=== PATIENT | male | born 1950 | race African-American/Black ===

== ENCOUNTER 2018-03-03 15:53 | Inpatient (IN) | payer MEDICARE ==
[~2018-03-03] VITALS: Ht 188 cm; Wt 93.5 kg
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
[2018-03-03 15:55] VITALS: BP 166/79
[2018-03-03] MEDS ORDERED: AMARYL4 MG PO (16:04)
[2018-03-03] MEDS ORDERED: LIPITOR 20 MG T20 M1 PO ×2 (16:05)
[2018-03-03] MEDS ORDERED: METFORMIN HCL500 MG PO (16:06)
[2018-03-03] MEDS ORDERED: NORVASC5 MG PO (16:06)
[2018-03-03] MEDS ORDERED: ASPIR 8181 MG PO (16:06)
[2018-03-03] MEDS ORDERED: MOBIC7.5 MG PO (16:06)
[2018-03-03 16:33] LABS: MCH 27.5 pg (26.0-34.0); MCV 84.5 fL (80.0-100.0)
[2018-03-03 16:34] LABS: HEMATOCRIT 35.7 % (42.0-52.0); HEMOGLOBIN 11.6 gm/dL (14.0-18.0); MCHC 32.6 g/dL (28.0-37.0); MPV 9.4 fl. (7.2-11.1); NUCLEATED RBCS 1 /100WBC; PLATELET COUNT* 227 thou/uL (150-400); RBC 4.23 mil/uL (4.50-6.00); RDW-CV 15.2 % (10.5-14.5); WBC 13.4 thou/uL (4.0-11.0)
[2018-03-03 16:42] LABS: INFLUENZA A ANTIGEN None Detected (None Detect)
[2018-03-03 16:42] LABS: APTT 36.9 Seconds (25.0-31.3); INR 1.1
[2018-03-03 16:44] LABS: CALCIUM 8.1 mg/dL (8.5-10.1); CREATININE 1.5 mg/dL (0.6-1.3)
[2018-03-03 16:49] LABS: ABSOLUTE LYMPHOCYTES 0.5 thou/uL (0.8-5.3); ABSOLUTE MONOCYTES 0.1 thou/uL (0.0-1.2); ABSOLUTE NEUTROPHILS 12.7 thou/uL (1.6-8.1); PLATELET ESTIMATE ADEQUATE
[2018-03-03 16:53] LABS: URINE BILIRUBIN NEGATIVE (Negative); URINE BLOOD 2+ (Negative); URINE COLOR YELLOW; URINE GLUCOSE-RANDOM 3+ (Negative); URINE KETONES NEGATIVE (Negative); URINE LEUKOCYTES-REFLEX NEGATIVE (Negative); URINE NITRITE-REFLEX NEGATIVE (Negative); URINE PROTEIN 2+ (Negative); URINE SPECIFIC GRAVITY 1.015 (1.005-1.030); URINE UROBILINOGEN 0.2 E.U./dl (0.2-1.0)
[2018-03-03 16:54] LABS: URINE CLARITY HAZY
[2018-03-03 16:56] LABS: ALBUMIN 2.4 g/dL (3.4-5.0); TOTAL BILIRUBIN 0.6 mg/dL (<0.1-1.0); TOTAL PROTEIN 6.9 g/dL (6.4-8.2); TROPONIN-I LEVEL 0.11 ng/mL (<0.06)
[2018-03-03 17:04] LABS: AMORPHOUS URATES Few /LPF (None Seen); BACTERIA-REFLEX None Seen /HPF (None Seen); CASTS None Seen /LPF (None Seen); SQUAMOUS 0-3 Few /LPF (0-3); URINE RBC 0-2 Rare /HPF (0-2); URINE WBC-REFLEX None Seen /HPF (0-5)
[2018-03-03 17:23] VITALS: BP 170/80
[2018-03-03 17:50] VITALS: BP 171/77
[2018-03-03 17:51] VITALS: BP 151/70
[2018-03-03 20:00] VITALS: BP 156/86
[2018-03-04 01:01] VITALS: BP 150/73
[2018-03-04 05:17] VITALS: BP 169/103
[2018-03-04 08:00] VITALS: BP 144/83
[2018-03-04 12:00] VITALS: BP 150/81
--- NOTE | 2018-03-04 12:16 | EKG ---
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
--- NOTE | 2018-03-04 12:19 | EKG ---
[place] [address] ELECTROCARDIOGRAM REPORT Name: TREVERKHOI Teixeira Room: [address] ADM IN M.R.#: [id number] Admission: 03/03/18 Attend Phys: Emmanuel Almonte MD Discharge: Date of : 50 Report #: [id number] THIS REPORT FOR: //name// [facility] Test Date: 2018-03-04 Test Time: 07:48:07 Pat Name: KHOI PERERA Department: Room: [address] Gender: M Collaborative Physician: : 1950 Requested By: Emmanuel Almonte Order Number: [id number] MD: Lio Garner Measurements Intervals [place] Rate: 115 P: VT: QRS: 22 QRSD: 76 T: 19 QT: 361 QTc: 500 Interpretive Statements Atrial fibrillation Posterior infarct, old No previous ECG available for comparison Electronically Signed On 03-04-2018 12:18:58 PANEL EDGE SEALER by Lio Garner [email or web address] <ELECTRONICALLY SIGNED> By: Lio Garner MD, [facility] 03/04/18 1218 0748 7 Lio Garner MD, FACC /EPI
[2018-03-04 16:00] VITALS: BP 135/68
[2018-03-04 20:00] VITALS: BP 153/67
[2018-03-05 00:29] VITALS: BP 131/67
[2018-03-05 05:00] VITALS: BP 136/72
[2018-03-05 08:00] VITALS: BP 139/79
[2018-03-05 12:00] VITALS: BP 136/70
--- NOTE | 2018-03-05 14:18 | 2DMMODE ---
[place] [address] 2 D/M-MODE ECHOCARDIOGRAM Name: KHOI PERERA Room: [address] IN [facility]#: [id number] Admission: 03/03/18 Attend Phys: Emmanuel Almonte, Discharge: Date of : 50 Date of Service: 03/05/18 1418 Report #: [id number] THIS REPORT FOR: //name// APPROVED REPORT Study performed: 03/05/2018 10:51:42 EXAM: Comprehensive 2D, Doppler, and color-flow Echocardiogram Patient Location: In-Patient Room #: [facility] Status: routine BSA: 2.08 HR: 85 bpm BP: 139/79 mmHg Rhythm: NSR Other Information Study Quality: Good Indications Atrial Fibrillation Fever 2D Dimensions IVSd: 12.75 (7-11mm) LVOT Diam: 21.43 (18-24mm) LVDd: 36.24 mm PWd: 10.44 (7-11mm) Ascending Ao: 26.10 (22-36mm) LVDs: 25.90 (25-40mm) Aortic Root: 29.07 mm Volumes Left Atrial Volume (Systole) LA ESV Index: 27.70 mL/m2 Aortic Valve AoV Peak Demetrio.: 1.31 m/s AO Peak Gr.: 6.84 mmHg LVOT Max P.36 mmHg AO Mean Gr.: 3.33 mmHg LVOT Mean P.64 mmHg LVOT Max V: 1.26 m/s AO V2 VTI: 22.01 cm LVOT Mean V: 0.73 m/s MARCO (VTI): 3.64 cm2 LVOT V1 VTI: 22.19 cm Mitral Valve E/A Ratio: 1.16 MV Decel. Time: 178.19 [place] [address] 2 D/M-MODE ECHOCARDIOGRAM Name: KHOI PERERA Room: [address] IN .R.#: [id number] Admission: 03/03/18 Attend Phys: Emmanuel Almonte, Discharge: Date of : 50 Date of Service: 03/05/18 1418 Report #: [id number] MV E Max Demetrio.: 0.76 m/s MV PHT: 51.67 ms MVA (PHT): 4.26 cm2 TDI E/Lateral E': 6.91 E/Medial E': 8.44 Medial E' Demetrio.: 0.09 m/s Lateral E' Demetrio.: 0.11 m/s Tricuspid Valve RAP Estimate: 5.00 mmHg TR Peak Gr.: 32.30 mmHg RVSP: 37.00 mmHg PA Pressure: 37.00 mmHg Left Ventricle The left ventricle is normal size. There is normal LV segmental wall motion. There is normal left ventricular wall thickness. Left ventricular systolic function is normal. The left ventricular ejection fraction is within the normal range. LVEF is 65%. The left ventricular diastolic function is normal. Right Ventricle The right ventricle is normal size. The right ventricular systolic function is normal. Atria The left atrium size is normal. The right atrium size is normal. Aortic Valve Mild aortic valve sclerosis. No aortic regurgitation is present. There is no aortic valvular stenosis. Mitral Valve Mitral valve leaflets are mildly thickened. There is no mitral valve regurgitation noted. No evidence of mitral valve stenosis. Tricuspid Valve The tricuspid valve is normal in structure. Mild tricuspid regurgitation. Mild pulmonary hypertension. Pulmonic Valve The pulmonary valve is normal in structure. There is no pulmonic valvular regurgitation[place] [address] 2 D/M-MODE ECHOCARDIOGRAM Name: KHOI PERERA Room: [address] IN [facility]#: [id number] Admission: 03/03/18 Attend Phys: Emmanuel Almonte, Discharge: Date of : 50 Date of Service: 03/05/18 1418 Report #: [id number] The aortic root is normal in size. IVC is normal in size and collapses >50% with inspiration. Pericardium There is no pericardial effusion. <Conclusion> The left ventricle is normal size. There is normal left ventricular wall thickness. Left ventricular systolic function is normal. The left ventricular ejection fraction is within the normal range. LVEF is 65%. The right ventricle is normal size. The left atrium size is normal. Mild aortic valve sclerosis. No aortic regurgitation is present. There is no aortic valvular stenosis. Mitral valve leaflets are mildly thickened. There is no mitral valve regurgitation noted. No evidence of mitral valve stenosis. The tricuspid valve is normal in structure. IVC is normal in size and collapses >50% with inspiration. There is no pericardial effusion. There is normal LV segmental wall motion. <ELECTRONICALLY SIGNED> By: Louie Street MD, FACC 03/05/18 [address] MD, FACC /INF
[2018-03-05 16:00] VITALS: BP 145/70
[2018-03-05 20:35] VITALS: BP 152/89
[2018-03-06] VITALS (7 sets, daily range): BP systolic 143–154; BP diastolic 72–78
[2018-03-06 05:39] LABS: ABSOLUTE MONOCYTES 1.3 thou/uL (0.0-1.2); ABSOLUTE NEUTROPHILS 8.2 thou/uL (1.6-8.1); BASOPHILS 0.4 %; EOSINOPHILS 0.4 %; HEMATOCRIT 32.4 % (42.0-52.0); HEMOGLOBIN 10.7 gm/dL (14.0-18.0); LYMPHOCYTES 17.2 %; MCH 27.5 pg (26.0-34.0); MCHC 33.1 g/dL (28.0-37.0); MCV 82.9 fL (80.0-100.0); MONOCYTES 11.6 %; MPV 8.3 fl. (7.2-11.1); NUCLEATED RBCS 0 /100WBC; PLATELET COUNT* 295 thou/uL (150-400); POLYS 70.4 %; RBC 3.91 mil/uL (4.50-6.00); RDW-CV 15.7 % (10.5-14.5); WBC 11.6 thou/uL (4.0-11.0)
[2018-03-06 06:07] LABS: ALBUMIN 1.5 g/dL (3.4-5.0); CREATININE 0.9 mg/dL (0.6-1.3); MAGNESIUM 1.4 mg/dL (1.8-2.4); POTASSIUM 3.7 mmol/L (3.5-5.1); TOTAL BILIRUBIN 0.5 mg/dL (<0.1-1.0); TOTAL PROTEIN 6.1 g/dL (6.4-8.2)
[2018-03-07] VITALS: BP 153/77
[2018-03-07 04:00] VITALS: BP 162/85
[2018-03-07 04:30] LABS: ABSOLUTE BASOPHILS 0.1 thou/uL (0.0-0.2); ABSOLUTE LYMPHOCYTES 1.7 thou/uL (0.8-5.3); ABSOLUTE MONOCYTES 1.3 thou/uL (0.0-1.2); BASOPHILS 0.8 %; EOSINOPHILS 0.2 %; HEMATOCRIT 33.9 % (42.0-52.0); LYMPHOCYTES 13.2 %; MCH 27.4 pg (26.0-34.0); MCHC 32.6 g/dL (28.0-37.0); MCV 84.1 fL (80.0-100.0); MONOCYTES 9.7 %; MPV 8.5 fl. (7.2-11.1); NUCLEATED RBCS 0 /100WBC; PLATELET COUNT* 330 thou/uL (150-400); POLYS 76.1 %; RBC 4.03 mil/uL (4.50-6.00); RDW-CV 15.1 % (10.5-14.5); WBC 13.1 thou/uL (4.0-11.0)
[2018-03-07 04:41] LABS: ALBUMIN 1.5 g/dL (3.4-5.0); CALCIUM 8.3 mg/dL (8.5-10.1); CREATININE 0.9 mg/dL (0.6-1.3); POTASSIUM 3.4 mmol/L (3.5-5.1); TOTAL BILIRUBIN 0.6 mg/dL (<0.1-1.0); TOTAL PROTEIN 6.3 g/dL (6.4-8.2)
[2018-03-07 08:25] VITALS: BP 157/85
[2018-03-07 12:00] VITALS: BP 152/82
[2018-03-07 12:44] LABS: MAGNESIUM 1.4 mg/dL (1.8-2.4); POTASSIUM 3.4 mmol/L (3.5-5.1)
[2018-03-07 17:03] VITALS: BP 176/93
[2018-03-07 20:20] VITALS: BP 153/83
[2018-03-08] VITALS (13 sets, daily range): BP systolic 142–177; BP diastolic 63–94
[2018-03-08 09:40] LABS: ALBUMIN 1.5 g/dL (3.4-5.0); CALCIUM 8.2 mg/dL (8.5-10.1); CREATININE 0.7 mg/dL (0.6-1.3); POTASSIUM 3.9 mmol/L (3.5-5.1); TOTAL BILIRUBIN 0.5 mg/dL (<0.1-1.0); TOTAL PROTEIN 6.4 g/dL (6.4-8.2)
[2018-03-08 11:13] LABS: ESR (SEDRATE) 123 mm/hr (0-20)
[2018-03-08 11:20] LABS: ABSOLUTE BASOPHILS 0.2 thou/uL (0.0-0.2); ABSOLUTE EOSINOPHILS 0.1 thou/uL (0.0-0.7); ABSOLUTE LYMPHOCYTES 1.9 thou/uL (0.8-5.3); ABSOLUTE MONOCYTES 1.6 thou/uL (0.0-1.2); ABSOLUTE NEUTROPHILS 9.3 thou/uL (1.6-8.1); BASOPHILS 1.3 %; EOSINOPHILS 0.7 %; HEMATOCRIT 32.7 % (42.0-52.0); HEMOGLOBIN 10.5 gm/dL (14.0-18.0); LYMPHOCYTES 14.7 %; MCV 84.3 fL (80.0-100.0); MPV 8.8 fl. (7.2-11.1); NUCLEATED RBCS 0 /100WBC; PLATELET COUNT* 355 thou/uL (150-400); POLYS 71.3 %; RBC 3.88 mil/uL (4.50-6.00); RDW-CV 16.1 % (10.5-14.5)
[2018-03-08 13:24] LABS: BF LYMPHOCYTES 7 %; BF POLYS 93 %
[2018-03-08 13:25] LABS: BF RBC 17100 /mm3; CLARITY CLOUDY; COLOR PINK; SOURCE LEFT SHOULDER; TOTAL CELL COUNT 16500 /mm3; TOTAL VOLUME 1.5 ml
--- NOTE | 2018-03-08 17:34 | TEE ---
[place] [address] TRANSESOPHAGEAL ECHOCARDIOGRAM Name: TREVERKHOI Room: [address] IN [facility]#: [id number] Admission: 03/03/18 Attend Phys: Emmanuel Almonte, Discharge: Date of : 50 Date of Service: 03/08/18 1734 Report #: [id number] THIS REPORT FOR: //name// APPROVED REPORT Study performed: 03/08/2018 11:46:48 EXAM: Transesophageal Echocardiogram Patient Location: In-Patient Room #: [facility] Status: routine BSA: 2.23 Rhythm: NSR Indications Fever, rule out endocarditis Echo Enhancing Agent Indication: Rule out Shunt Agent(s) / Amount(s) Used: Agitated Saline 10 cc Procedure After obtaining informed consent, patient underwent transesophageal echo in the Bedside. Type of Sedation : Conscious Sedation Sedation was administered by Tabatha Samuel RN. Sedation start time: 1152 Case end Time: 1205 Sedation was achieved intravenously with: Versed (5) Fentanyl (125) Transesophageal probe was inserted and advanced into esophagus without difficulty by Savage Tang MD, [facility]. Echo enhancement indication: R/O Septal defect. Echo enhancement agent administered: Agitated Saline The SERENITY was performed without complications. Throughout the procedure, the blood pressure, pulse oximetry, cardiac rhythm, and rate were monitored. The patient tolerated the procedure without adverse effects. Recovery from conscious sedation was uneventful and vital signs were stable. Left Ventricle The left ventricle is normal size. There is normal LV segmental wall motion. There is normal left ventricular wall thickness. Left ventricular systolic function is normal. LVEF is 65-70%. [place] [address] TRANSESOPHAGEAL ECHOCARDIOGRAM Name: KOHI PERERA Room: [address]#: [id number] Admission: 03/03/18 Attend Phys: Emmanuel Almonte, Discharge: Date of : 50 Date of Service: 03/08/18 1734 Report #: [id number] Right Ventricle The right ventricle is normal size. The right ventricular systolic function is normal. Atria The left atrium size is normal. No thrombus is visualized in the left atrium or appendage. Interatrial septum is intact without evidence of ASD or PFO. The right atrium size is normal. Aortic Valve The aortic valve is normal in structure. No aortic regurgitation is present. There is no aortic valvular stenosis. Mitral Valve The mitral valve is normal in structure. There is no mitral valve regurgitation noted. No evidence of mitral valve stenosis. Tricuspid Valve The tricuspid valve is normal in structure. Mild tricuspid regurgitation. Pulmonic Valve The pulmonary valve is normal in structure. There is no pulmonic valvular regurgitation. Great Vessels The aortic root is normal in size. Pericardium There is no pericardial effusion. <Conclusion> The left ventricle is normal size. There is normal left ventricular wall thickness. Left ventricular systolic function is normal. LVEF is 65-70%. Interatrial septum is intact without evidence of ASD or PFO. The left atrium size is normal. No thrombus is visualized in the left atrium or appendage. The aortic valve is normal in structure. The mitral valve is normal in structure. The tricuspid valve is [place] [address] TRANSESOPHAGEAL ECHOCARDIOGRAM Name: KHOI PERERA Room: [address] IN .R.#: [id number] Admission: 03/03/18 Attend Phys: Emmanuel Almonte, Discharge: Date of : 50 Date of Service: 03/08/181733 Report #: [id number] There is no evidence of valvular vegetation. <ELECTRONICALLY SIGNED> By: Savage Tang MD, FACC 03/08/181733 33 33 Savage Tang MD, FACC /INF
[2018-03-09] VITALS: BP 149/81
[2018-03-09 04:00] VITALS: BP 156/74
[2018-03-09 05:12] LABS: ABSOLUTE BASOPHILS 0.1 thou/uL (0.0-0.2); ABSOLUTE EOSINOPHILS 0.1 thou/uL (0.0-0.7); ABSOLUTE LYMPHOCYTES 2.2 thou/uL (0.8-5.3); ABSOLUTE MONOCYTES 1.3 thou/uL (0.0-1.2); ABSOLUTE NEUTROPHILS 7.4 thou/uL (1.6-8.1); BASOPHILS 0.6 %; EOSINOPHILS 0.9 %; HEMATOCRIT 30.8 % (42.0-52.0); HEMOGLOBIN 9.9 gm/dL (14.0-18.0); LYMPHOCYTES 19.8 %; MCH 26.7 pg (26.0-34.0); MCHC 32.2 g/dL (28.0-37.0); MCV 82.9 fL (80.0-100.0); MONOCYTES 11.4 %; MPV 8.4 fl. (7.2-11.1); NUCLEATED RBCS 0 /100WBC; PLATELET COUNT* 381 thou/uL (150-400); POLYS 67.3 %; RBC 3.72 mil/uL (4.50-6.00); RDW-CV 15.9 % (10.5-14.5); WBC 11.1 thou/uL (4.0-11.0)
[2018-03-09 05:28] LABS: ALBUMIN 1.4 g/dL (3.4-5.0); CALCIUM 8.2 mg/dL (8.5-10.1); CREATININE 0.7 mg/dL (0.6-1.3); TOTAL BILIRUBIN 0.6 mg/dL (<0.1-1.0); TOTAL PROTEIN 6.6 g/dL (6.4-8.2)
[2018-03-09 08:02] VITALS: BP 151/73
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
[2018-03-09 15:58] VITALS: BP 156/77
[2018-03-09 20:00] VITALS: BP 148/84
[2018-03-10 00:59] VITALS: BP 140/74
[2018-03-10 04:56] VITALS: BP 146/75
[2018-03-10 06:59] LABS: ABSOLUTE BASOPHILS 0.1 thou/uL (0.0-0.2); ABSOLUTE EOSINOPHILS 0.1 thou/uL (0.0-0.7); ABSOLUTE LYMPHOCYTES 1.7 thou/uL (0.8-5.3); ABSOLUTE MONOCYTES 0.9 thou/uL (0.0-1.2); ABSOLUTE NEUTROPHILS 7.1 thou/uL (1.6-8.1); BASOPHILS 1.3 %; EOSINOPHILS 0.9 %; HEMATOCRIT 28.9 % (42.0-52.0); HEMOGLOBIN 9.5 gm/dL (14.0-18.0); MCH 27.2 pg (26.0-34.0); MCHC 32.9 g/dL (28.0-37.0); MCV 82.7 fL (80.0-100.0); MONOCYTES 8.7 %; MPV 7.7 fl. (7.2-11.1); NUCLEATED RBCS 0 /100WBC; PLATELET COUNT* 420 thou/uL (150-400); POLYS 72.1 %; RBC 3.49 mil/uL (4.50-6.00); RDW-CV 15.9 % (10.5-14.5); WBC 9.8 thou/uL (4.0-11.0)
[2018-03-10 07:13] LABS: ALBUMIN 1.3 g/dL (3.4-5.0); CALCIUM 7.9 mg/dL (8.5-10.1); CREATININE 0.7 mg/dL (0.6-1.3); POTASSIUM 3.5 mmol/L (3.5-5.1); TOTAL BILIRUBIN 0.6 mg/dL (<0.1-1.0); TOTAL PROTEIN 6.3 g/dL (6.4-8.2)
[2018-03-10 07:19] LABS: PREALBUMIN 6.6 mg/dL (18.0-35.7)
[2018-03-10 08:00] VITALS: BP 147/71
[2018-03-10 12:16] VITALS: BP 140/70
[2018-03-10 16:13] VITALS: BP 138/76
[2018-03-10 20:00] VITALS: BP 140/76
[2018-03-11 00:04] VITALS: BP 173/92
[2018-03-11 03:44] VITALS: BP 160/74
[2018-03-11 04:28] VITALS: BP 97/56
[2018-03-11 05:30] LABS: HEMOGLOBIN 9.3 gm/dL (14.0-18.0); MCH 26.5 pg (26.0-34.0); MCHC 32.2 g/dL (28.0-37.0); MCV 82.4 fL (80.0-100.0); MPV 7.9 fl. (7.2-11.1); NUCLEATED RBCS 0 /100WBC; RBC 3.52 mil/uL (4.50-6.00); RDW-CV 16.1 % (10.5-14.5); WBC 12.9 thou/uL (4.0-11.0)
[2018-03-11 05:39] LABS: ALBUMIN 1.3 g/dL (3.4-5.0); CALCIUM 8.1 mg/dL (8.5-10.1); CREATININE 0.7 mg/dL (0.6-1.3); PLATELET COUNT* 505 thou/uL (150-400); POTASSIUM 3.5 mmol/L (3.5-5.1); TOTAL BILIRUBIN 0.6 mg/dL (<0.1-1.0); TOTAL PROTEIN 6.6 g/dL (6.4-8.2)
[2018-03-11 06:19] LABS: ABSOLUTE BASOPHILS 0.1 thou/uL (0.0-0.2); ABSOLUTE LYMPHOCYTES 1.5 thou/uL (0.8-5.3); ABSOLUTE MONOCYTES 0.6 thou/uL (0.0-1.2); ABSOLUTE NEUTROPHILS 10.6 thou/uL (1.6-8.1); PLATELET ESTIMATE INCREASED
[2018-03-11 06:20] LABS: ANISOCYTOSIS 1+; POIKILOCYTOSIS 1+; POLYCHROMASIA Occasional
[2018-03-11 16:00] VITALS: BP 145/71
[2018-03-11 19:35] VITALS: BP 155/83
[2018-03-12] VITALS: BP 155/75
[2018-03-12 04:00] VITALS: BP 154/75
[2018-03-12 04:32] LABS: ABSOLUTE BASOPHILS 0.1 thou/uL (0.0-0.2); ABSOLUTE EOSINOPHILS 0.1 thou/uL (0.0-0.7); ABSOLUTE LYMPHOCYTES 2.2 thou/uL (0.8-5.3); ABSOLUTE MONOCYTES 1.1 thou/uL (0.0-1.2); BASOPHILS 0.8 %; EOSINOPHILS 0.9 %; HEMATOCRIT 28.7 % (42.0-52.0); HEMOGLOBIN 9.4 gm/dL (14.0-18.0); LYMPHOCYTES 21.2 %; MCH 27.1 pg (26.0-34.0); MCHC 32.7 g/dL (28.0-37.0); MCV 82.9 fL (80.0-100.0); MONOCYTES 10.4 %; NUCLEATED RBCS 0 /100WBC; POLYS 66.7 %; RBC 3.46 mil/uL (4.50-6.00); RDW-CV 15.7 % (10.5-14.5); WBC 10.4 thou/uL (4.0-11.0)
[2018-03-12 04:50] LABS: ALBUMIN 1.3 g/dL (3.4-5.0); CALCIUM 8.4 mg/dL (8.5-10.1); CREATININE 0.7 mg/dL (0.6-1.3); POTASSIUM 3.1 mmol/L (3.5-5.1); TOTAL BILIRUBIN 0.5 mg/dL (<0.1-1.0); TOTAL PROTEIN 6.7 g/dL (6.4-8.2)
[2018-03-12 04:57] LABS: PLATELET COUNT* 599 thou/uL (150-400)
[2018-03-12 08:00] VITALS: BP 166/83
[2018-03-12 12:15] VITALS: BP 169/81
[2018-03-12 17:02] VITALS: BP 177/87
[2018-03-12 20:00] VITALS: BP 163/82
[2018-03-13] VITALS: BP 173/96
[2018-03-13 04:00] VITALS: BP 160/93
[2018-03-13 04:50] LABS: ABSOLUTE LYMPHOCYTES 1.4 thou/uL (0.8-5.3); ABSOLUTE NEUTROPHILS 7.7 thou/uL (1.6-8.1); BASOPHILS 0.3 %; EOSINOPHILS 0.1 %; HEMATOCRIT 28.6 % (42.0-52.0); HEMOGLOBIN 9.5 gm/dL (14.0-18.0); LYMPHOCYTES 13.9 %; MCH 27.9 pg (26.0-34.0); MCHC 33.4 g/dL (28.0-37.0); MCV 83.6 fL (80.0-100.0); MONOCYTES 9.5 %; NUCLEATED RBCS 0 /100WBC; POLYS 76.2 %; RBC 3.42 mil/uL (4.50-6.00); RDW-CV 16.2 % (10.5-14.5); WBC 10.1 thou/uL (4.0-11.0)
[2018-03-13 05:02] LABS: PLATELET COUNT* 764 thou/uL (150-400)
[2018-03-13 05:10] LABS: ALBUMIN 1.5 g/dL (3.4-5.0); CREATININE 0.9 mg/dL (0.6-1.3); POTASSIUM 3.8 mmol/L (3.5-5.1); TOTAL BILIRUBIN 0.6 mg/dL (<0.1-1.0); TOTAL PROTEIN 7.6 g/dL (6.4-8.2)
[2018-03-13 07:30] VITALS: BP 169/105
[2018-03-13 11:49] VITALS: BP 156/78
[2018-03-13 16:00] VITALS: BP 173/86
[2018-03-13 20:00] VITALS: BP 136/75
[2018-03-14] VITALS: BP 136/76
[2018-03-14 04:00] VITALS: BP 155/78
[2018-03-14 05:34] LABS: ABSOLUTE BASOPHILS 0.1 thou/uL (0.0-0.2); ABSOLUTE EOSINOPHILS 0.1 thou/uL (0.0-0.7); ABSOLUTE LYMPHOCYTES 1.9 thou/uL (0.8-5.3); ABSOLUTE NEUTROPHILS 6.1 thou/uL (1.6-8.1); BASOPHILS 1.4 %; EOSINOPHILS 1.1 %; HEMATOCRIT 26.3 % (42.0-52.0); HEMOGLOBIN 8.8 gm/dL (14.0-18.0); LYMPHOCYTES 20.8 %; MCH 27.6 pg (26.0-34.0); MCHC 33.2 g/dL (28.0-37.0); MPV 7.8 fl. (7.2-11.1); NUCLEATED RBCS 0 /100WBC; PLATELET COUNT* 732 thou/uL (150-400); POLYS 65.7 %; RBC 3.17 mil/uL (4.50-6.00); RDW-CV 15.9 % (10.5-14.5); WBC 9.3 thou/uL (4.0-11.0)
[2018-03-14 05:45] LABS: ALBUMIN 1.3 g/dL (3.4-5.0); CALCIUM 8.5 mg/dL (8.5-10.1); CREATININE 0.7 mg/dL (0.6-1.3); POTASSIUM 3.1 mmol/L (3.5-5.1); TOTAL BILIRUBIN 0.6 mg/dL (<0.1-1.0); TOTAL PROTEIN 6.7 g/dL (6.4-8.2)
--- NOTE | 2018-03-14 06:37 | OP ---
[address] [address] OPERATIVE REPORT Name: TREVERKHOI Room: [address] IN M.R.#: [id number] Admission: 03/03/18 Attend Phys: Emmanuel Almonte MD Discharge: Date of : 50 Report #: [id number] THIS REPORT FOR: //name// CC: Olman Almonte DATE OF SERVICE: 03/09/2018 PREOPERATIVE DIAGNOSIS: Left shoulder septic arthritis. POSTOPERATIVE DIAGNOSIS: Left shoulder septic arthritis. SURGERY PERFORMED: Left shoulder arthroscopic lavage and synovectomy globally as well as synovial tissue culture and fluid culture. SURGEON: Henrik Hall DO. SUPERVISOR PHOTOENGRAVING: Darwin Dobson DO, resident. ANESTHESIA: General anesthetic. The patient has been on scheduled antibiotics prior to surgery. He was on Rocephin. The patient has Hemovac drain x 1 to the left shoulder. Estimated blood loss is 10 mL. He has no complications otherwise and no other specimens. GROSS FINDINGS: This patient was admitted with bacteremia and significant pain in his left shoulder region. He did have underlying positive cultures of that blood as well as he has had a recent flu; it was B-type at the same time. The patient intraoperatively, however, demonstrated severe synovitis throughout that entire shoulder region on the left side. The patient had a rotator cuff tear. The patient had, at this point in time, thickened fluid within that left shoulder and there was even some hemarthrosis in the left shoulder upon initially entering the shoulder. The patient did not have any other gross findings. Photographs were taken. DESCRIPTION OF PROCEDURE: This very pleasant gentleman was taken to the operating room and placed on the table, given the benefit of general anesthetic and placed in a beach chair position. He underwent a chlorhexidine prep and sterile draping for left shoulder surgery. Surgery began at this point in time with making a standard timeout was called and verified. Posterior portal incision was made with a 15 blade scalpel. Arthroscope was put in the glenohumeral joint and subacromial space region both. He had a 6000 mL lavage of the shoulder joint initially. We did do synovial cultures upon first entering the joint. I then, after the lavage, did a synovial biopsy that was hyperemic and sent that for tissue cultures. I now did put a shaver blade within this shoulder joint and did a complete synovectomy of [place] [address] OPERATIVE REPORT Name: KHOI PERERA Room: [address] IN [facility]#: [id number] Admission: 03/03/18 Attend Phys: Emmanuel Almonte MD Discharge: Date of : 50 Report #: [id number] and the patient tolerated that well. I did place a Hemovac drain in the subacromial space area. It was a medium size. The portal sites were now closed with 3-0 nylon in a [id number] fashion. A 4 x 4 compressive ABD dressing was placed to the left shoulder. He was transferred off the table and taken to recovery in stable condition. I attested and was present for all critical aspects of the surgery. Needle and sponge counts correct. <ELECTRONICALLY SIGNED> By: Henrik Hall DO 03/14/18 0637 1234 1324Cmasood Hall DO /nt
[2018-03-14 07:20] VITALS: BP 161/80
--- NOTE | 2018-03-14 07:56 | PATH ---
[address] [address] PATHOLOGY RPT PROCEDURE Name: KHOI MARTINEZ Room: [address] IN .R.#: [id number] Admission: 03/03/18 Date of : 50 Discharge: Report #: [id number] Path Case #: [id number] [facility] Accession Number: [id number] . 01 Material submitted: . LEFT SHOULDER SYNOVIAL TISSUE . 01 Clinical history: . Septic left shoulder . 02 Diagnosis: Left shoulder synovial tissue: - Nonspecific chronic and acute synovitis. (GEOVANNA:pit 03/12/2018) QTP/03/12/2018 . 02 Electronically signed: . Ankush Puente MD, Pathologist NPI- [id number] . 01 Gross description: . Received in formalin labeled "Khoi Martinez, left shoulder synovial tissue" is a 0.6 x 0.5 x 0.3 cm portion of hernandez-brown soft tissue. The specimen is submitted without sectioning in cassette A1. ([facility] [place]; 03/11/2018) SYC/QAC . 02 Pathologist provided ICD-10: M65.812 . 02 CPT . 863308 Specimen Comment: A courtesy copy of this report has been sent to Specimen Comment: [phone], . Specimen Comment: Report sent to DR CAMPA / DR MADDOX Specimen Comment: A duplicate report has been generated due to demographic updates. Performed at: [address], [place] [id number] MD Nilson Smiley MD Phone: [phone] Performed at: [facility] [address], [place], [place] [id number] MD Ankush Puente MD Phone: [phone]
[2018-03-14] MEDS ORDERED: OXYCODONE HCL 55 MG PO (11:09)
[2018-03-14] MEDS ORDERED: TRAMADOL 50 MG50 MG PO (11:10)
[2018-03-14] MEDS ORDERED: LOPRESSOR25 PO (11:13)
[2018-03-14] MEDS ORDERED: HUMALOG100 UNIT/1 SUBQ (11:13)
[2018-03-14] MEDS ORDERED: CARDIZEM CD120 MG PO (11:14)
[2018-03-14] MEDS ORDERED: XARELTO20 MG PO (11:18)
[2018-03-14 11:22] VITALS: BP 143/72
[2018-03-14 12:18] VITALS: BP 140/67
[2018-03-14 16:11] VITALS: BP 176/91
[2018-03-15] VITALS: BP 122/63
[2018-03-15 04:00] VITALS: BP 161/80
[2018-03-15 04:56] LABS: ABSOLUTE BASOPHILS 0.1 thou/uL (0.0-0.2); ABSOLUTE EOSINOPHILS 0.1 thou/uL (0.0-0.7); ABSOLUTE LYMPHOCYTES 2.9 thou/uL (0.8-5.3); ABSOLUTE MONOCYTES 1.2 thou/uL (0.0-1.2); ABSOLUTE NEUTROPHILS 6.3 thou/uL (1.6-8.1); BASOPHILS 0.6 %; EOSINOPHILS 1.2 %; HEMATOCRIT 29.1 % (42.0-52.0); HEMOGLOBIN 9.6 gm/dL (14.0-18.0); LYMPHOCYTES 27.2 %; MCH 27.2 pg (26.0-34.0); MCHC 32.9 g/dL (28.0-37.0); MCV 82.5 fL (80.0-100.0); MONOCYTES 11.5 %; MPV 7.4 fl. (7.2-11.1); NUCLEATED RBCS 0 /100WBC; POLYS 59.5 %; RBC 3.52 mil/uL (4.50-6.00); RDW-CV 16.2 % (10.5-14.5); WBC 10.6 thou/uL (4.0-11.0)
[2018-03-15 05:03] LABS: PLATELET COUNT* 873 thou/uL (150-400)
[2018-03-15 05:04] LABS: ALBUMIN 1.4 g/dL (3.4-5.0); CALCIUM 8.9 mg/dL (8.5-10.1); CREATININE 0.7 mg/dL (0.6-1.3); POTASSIUM 3.8 mmol/L (3.5-5.1); TOTAL BILIRUBIN 0.6 mg/dL (<0.1-1.0); TOTAL PROTEIN 7.5 g/dL (6.4-8.2)
[2018-03-15 05:32] LABS: PREALBUMIN 7.5 mg/dL (18.0-35.7)
[2018-03-15] MEDS ORDERED: AMOXICILLIN875 MG PO (14:20)
== END 2018-03-15 16:10 | DRG 853 ==
LOC: M.ERS 15:53 → M.2W 16:48 → M.TBA-ER 16:48 → M.2W 17:35
PROVIDERS: Family Medicine; Internal Medicine; Internal Medicine Infectious Disease; Orthopaedic Surgery
PROC: B24BZZ4 Ultrasonography of Heart with Aorta, Transesophageal (ICD-10-PCS; principal; 2018-03-08)
PROC: 0RBK4ZZ Excision of Left Shoulder Joint, Percutaneous Endoscopic Approach (ICD-10-PCS; 2018-03-09)
PROC: 3E1U38Z Irrigation of Joints using Irrigating Substance, Percutaneous Approach (ICD-10-PCS; 2018-03-09)
DX: A40.9 Streptococcal sepsis, unspecified (principal); N17.0 Acute kidney failure with tubular necrosis; J10.00 Influenza due to other identified influenza virus with unspecified type of pneumonia; E44.0 Moderate protein-calorie malnutrition; M00.9 Pyogenic arthritis, unspecified; E78.5 Hyperlipidemia, unspecified; N18.9 Chronic kidney disease, unspecified; E11.22 Type 2 diabetes mellitus with diabetic chronic kidney disease; F17.210 Nicotine dependence, cigarettes, uncomplicated; I48.91 Unspecified atrial fibrillation; E87.5 Hyperkalemia; I48.0 Paroxysmal atrial fibrillation; I12.9 Hypertensive chronic kidney disease with stage 1 through stage 4 chronic kidney disease, or unspecified chronic kidney disease; J06.9 Acute upper respiratory infection, unspecified; M75.102 Unspecified rotator cuff tear or rupture of left shoulder, not specified as traumatic; M16.12 Unilateral primary osteoarthritis, left hip; M51.36 Other intervertebral disc degeneration, lumbar region; K75.9 Inflammatory liver disease, unspecified; Z79.899 Other long term (current) drug therapy; Z68.26 Body mass index [BMI] 26.0-26.9, adult